=== PATIENT | female | born 1985 | race African-American/Black ===

== ENCOUNTER 2017-05-16 17:58 | Emergency (ER) | payer MEDICAID ==
[~2017-05-16] VITALS: Ht 162.6 cm; Wt 50.0 kg
[2017-05-16 18:11] VITALS: BP 103/58
== END 2017-05-16 23:00 | disposition left against medical advice (07) ==
LOC: ER 22:48
DX: Z53.21 Procedure and treatment not carried out due to patient leaving prior to being seen by health care provider (principal)